=== PATIENT | female | born 1980 | race Caucasian/White ===

== ENCOUNTER 2018-02-24 12:13 | Emergency (ER) | payer OTHER ==
[2018-02-24 13:04] LABS: #Basophils 0.1 thou/uL (0.0-0.2); #Eosinphils 0.1 thou/uL (0.0-0.7); #Lymphocytes 2.7 thou/uL (1.20-3.40); #Monocytes 0.3 thou/uL (0.11-0.59); #Neutrophils 4.6 thou/uL (1.40-6.50); %Basophils 1.3 % (0.0-1.0); %Eosinophils 1.9 % (0.0-10.0); %Lymphocytes 34.4 % (21.0-51.0); %Monocytes 4.2 % (0.0-10.0); %Neutrophils 58.2 % (42.0-75.0); Hemoglobin 16.3 g/dL (12.0-16.0); Mean Corpuscular HGB CONC 33.7 g/dL (32.0-36.0); Mean Corpuscular Hemoglobin 32.4 pg (27.0-31.0); Mean Corpuscular Volume 96.1 fL (78.0-98.0); Mean Platelet Volume 6.8 fL (7.4-10.4); Platelet Count 294 thou/uL (130-400); RBC Distribution Width 11.4 % (11.5-14.5); Red Blood Cell (RBC) Count 5.03 mill/uL (4.20-5.40); White Blood Cell (WBC) Count 7.9 thou/uL (4.8-10.8)
[2018-02-24] MEDS ORDERED: Ondansetron ODT 4 MG TAB ONE (13:23)
[2018-02-24 13:26] LABS: Anion Gap 12 mmol/L (10-20); BUN (Urea Nitrogen) 9 mg/dL (7.0-18.7); Calc. Creatinine Clearance 0 mL/min (70-130); Calcium 9.7 mg/dL (7.8-10.44); Carbon Dioxide 24 mmol/L (22-29); Chloride 105 mmol/L (98-107); Estimated GFR-MDRD 75; Glucose 96 mg/dL (70-105); Potassium 4.1 mmol/L (3.5-5.1); Sodium 137 mmol/L (136-145)
[2018-02-24 13:29] LABS: CKMB 0.4 ng/mL (0-6.6); Troponin I Less than 0.010 ng/mL (< 0.028)
--- NOTE | 2018-02-24 13:55 | RAD ---
PA AND LATERAL CHEST: Date: 02/24/18 INDICATION: Chest pain. COMPARISON: None. IMPRESSION: Lungs are mildly hyperexpanded, but clear. Cholecystectomy clips are seen in the right upper quadrant . Cardiomediastinal silhouette is within normal limits. No acute osseous abnormality is noted. POS: [facility]
[2018-02-24] MEDS ORDERED: Promethazine HCl 25 MG/ML VIAL ONE (14:35)
[2018-02-24] MEDS ORDERED: Ketorolac Tromethamine 30 MG/ML VIAL ONE (15:36)
[2018-02-24] MEDS ORDERED: Pantoprazole 40 MG VIAL ONE (15:36)
--- NOTE | 2018-02-24 16:09 | RAD ---
THREE VIEWS OF THE ABDOMEN: Indication: Vomiting. FINDINGS: Upright and supine images of the abdomen demonstrate no evidence of pneumoperitoneum. Lung bases are clear. Cholecystectomy clips are seen within the right upper quadrant. Bowel gas pattern is nonobstru cted. Small surgical clips seen within the left hemipelvis, likely a displaced clips from the patient 's cholecystectomy procedure. No acute osseous abnormality is evident. IMPRESSION: No acute abnormality. POS: [facility]
== END 2018-02-24 17:00 | disposition home or self-care (01) ==
LOC: ERS 12:13
DX: R10.12 Left upper quadrant pain (principal); R11.2 Nausea with vomiting, unspecified; F17.210 Nicotine dependence, cigarettes, uncomplicated; F41.9 Anxiety disorder, unspecified; Z79.899 Other long term (current) drug therapy
CPT/HCPCS: 36415; 71046; 74019; 80048; 82553; 83690; 84484; 85025; 93005; 96361; 96374; 96375; C9113; J1885; J2550; Q0162

== ENCOUNTER 2018-06-24 22:58 | Observation (INO) | payer OTHER, SELFPAY ==
[2018-06-24 23:49] LABS: #Basophils 0.1 thou/uL (0.0-0.2); #Eosinphils 0.2 thou/uL (0.0-0.7); #Lymphocytes 3.5 thou/uL (1.20-3.40); #Monocytes 0.4 thou/uL (0.11-0.59); #Neutrophils 3.4 thou/uL (1.40-6.50); %Basophils 1.7 % (0.0-1.0); %Eosinophils 2.4 % (0.0-10.0); %Lymphocytes 45.8 % (21.0-51.0); %Monocytes 5.8 % (0.0-10.0); %Neutrophils 44.4 % (42.0-75.0); Hemoglobin 15.6 g/dL (12.0-16.0); Mean Corpuscular HGB CONC 33.1 g/dL (32.0-36.0); Mean Corpuscular Hemoglobin 32.1 pg (27.0-31.0); Mean Platelet Volume 7.5 fL (7.4-10.4); Platelet Count 252 thou/uL (130-400); RBC Distribution Width 11.5 % (11.5-14.5); Red Blood Cell (RBC) Count 4.87 mill/uL (4.20-5.40); White Blood Cell (WBC) Count 7.7 thou/uL (4.8-10.8)
[2018-06-25 00:03] LABS: ALT (SGPT) 11 U/L (8-55); AST (SGOT) 16 U/L (5-34); Albumin 4.2 g/dL (3.5-5.0); Alkaline Phosphatase 66 U/L (40-150); Anion Gap 11 mmol/L (10-20); BUN (Urea Nitrogen) 9 mg/dL (7.0-18.7); Bilirubin, Total 0.4 mg/dL (0.2-1.2); Calc. Creatinine Clearance 0 mL/min (70-130); Calcium 9.1 mg/dL (7.8-10.44); Carbon Dioxide 24 mmol/L (22-29); Chloride 106 mmol/L (98-107); Estimated GFR-MDRD 72; Globulin 2.8 g/dL (2.4-3.5); Glucose 98 mg/dL (70-105); Lipase 9 U/L (8-78); Potassium 3.9 mmol/L (3.5-5.1); Sodium 137 mmol/L (136-145)
[2018-06-25 00:06] LABS: Troponin I Less than 0.010 ng/mL (< 0.028)
--- NOTE | 2018-06-25 00:10 | RAD ---
CHEST ONE VIEW: 06/24/18 INDICATION: Cough, rib pain, nausea. COMPARISON: Prior exam dated 02/24/18. FINDINGS: The lungs are clear. The cardiomediastinal silhouette is within normal limits. No acute osseous abnor mality is evident. IMPRESSION: No acute cardiopulmonary abnormality. POS: [facility]
[2018-06-25] MEDS ORDERED: Ondansetron PF 4 MG/2 ML Vial ONE (00:12)
[2018-06-25] MEDS ORDERED: Ketorolac Tromethamine 30 MG/ML VIAL ONE (00:12)
[2018-06-25] MEDS ORDERED: diphenhydrAMINE 50 MG/ML VIAL ONE (00:37)
[2018-06-25 00:58] LABS: Bilirubin Negative (Negative); Blood, Urine Negative (Negative); Clarity CLEAR (Clear); Glucose, Urine (Dipstick) Negative (Negative); Leukocyte Negative (Negative); Nitrite Negative (Negative); Protein, Urine (Dipstick) Negative (Neg-Trace); Specific Gravity, Urine 1.003 (1.002-1.036); Urobilinogen 0.2 mg/dL (0.2-1.0)
[2018-06-25 00:59] LABS: Pregnancy Test - Urine (BHCG) Negative (Negative); Pregu Control Background? CLEAR/WHITE (CLR/WHITE); Pregu Control Bar Appear? YES (CONTROL BAR); Specific Gravity 1.003 (1.002-1.036)
[2018-06-25] MEDS ORDERED: Ondansetron PF 4 MG/2 ML Vial IVP PRN (01:18)
[2018-06-25] MEDS ORDERED: Guaifenesin DM 100-10/5 ML UDCUP PO PRN (01:18)
[2018-06-25] MEDS ORDERED: Acetaminophen 325 MG TAB PO PRN (01:18)
[2018-06-25] MEDS ORDERED: Nitroglycerin 0.4 MG TAB (25 Tab Bottle) PO PRN (01:18)
[2018-06-25] MEDS ORDERED: Aspirin 325 MG TAB PO SCH ×2 (01:30→08:00)
[2018-06-25] MEDS ORDERED: Ondansetron ODT 4 MG TAB ONE (02:13)
[2018-06-25 03:28] LABS: #Basophils 0.1 thou/uL (0.0-0.2); #Eosinphils 0.2 thou/uL (0.0-0.7); #Lymphocytes 2.6 thou/uL (1.20-3.40); #Monocytes 0.3 thou/uL (0.11-0.59); #Neutrophils 2.8 thou/uL (1.40-6.50); %Basophils 1.5 % (0.0-1.0); %Eosinophils 2.5 % (0.0-10.0); %Lymphocytes 44.1 % (21.0-51.0); %Monocytes 4.2 % (0.0-10.0); %Neutrophils 47.7 % (42.0-75.0); Hemoglobin 12.4 g/dL (12.0-16.0); Mean Corpuscular HGB CONC 33.8 g/dL (32.0-36.0); Mean Corpuscular Hemoglobin 33.1 pg (27.0-31.0); Mean Corpuscular Volume 97.9 fL (78.0-98.0); Mean Platelet Volume 7.3 fL (7.4-10.4); Platelet Count 207 thou/uL (130-400); RBC Distribution Width 11.5 % (11.5-14.5); Red Blood Cell (RBC) Count 3.76 mill/uL (4.20-5.40)
[2018-06-25 03:49] LABS: Troponin I Less than 0.010 ng/mL (< 0.028)
[2018-06-25 03:53] LABS: Anion Gap 10 mmol/L (10-20); BUN (Urea Nitrogen) 7 mg/dL (7.0-18.7); Calc. Creatinine Clearance 0 mL/min (70-130); Calcium 7.3 mg/dL (7.8-10.44); Carbon Dioxide 19 mmol/L (22-29); Cardiac Risk 4.1 (Less than 4.5); Chloride 115 mmol/L (98-107); Cholesterol 160 mg/dl (< 200 Desired); Estimated GFR-MDRD Greater than 90; Glucose 87 mg/dL (70-105); HDL Cholesterol 39 mg/dL (>60 Neg Risk); LDL Cholesterol, Calculated 99 mg/dL; Potassium 3.4 mmol/L (3.5-5.1); Sodium 141 mmol/L (136-145); Triglycerides 111 mg/dL (Less than 150)
[2018-06-25] MEDS ORDERED: Sodium Chloride 0.9% 1,000 ML IV SCH (04:15)
--- NOTE | 2018-06-25 04:42 | HP ---
REASON FOR ADMISSION: Chest pain. HISTORY OF PRESENT ILLNESS: The patient gives history of having mid back pain from 6:00 p.m. yesterd efren. She initially thought this was related to gas. She tried various home remedies. Nothing helped . Patient started to have retrosternal chest pain this morning and was radiating to the left shoulde r. This was 4-5/10 in intensity and was worse with breathing. This was associated with shortness of breath. She has had dry cough, but no fever or expectoration. Patient also felt her left elbow dionne n to the hand was numb. As all of these symptoms started to get worse, patient got concerned, hence came to emergency room. PAST MEDICAL AND SURGICAL HISTORY: History of cervical cancer with prior chemotherapy given in 2006 and subsequent hysterectomy, cholecystectomy, anxiety disorder. CURRENT MEDICATIONS: The patient is on estradiol, transdermal patch, alprazolam p.r.n. for anxiety. ALLERGIES: CECLOR, IODINE. PERSONAL HISTORY: Smokes 5-6 cigarettes a day, does not abuse alcohol or drugs. FAMILY HISTORY: Mother has history of hypertension. Father has had 3 MIs and 2 strokes and is livin g. CODE STATUS: FULL. This was discussed with patient at bedside. REVIEW OF SYSTEMS: The following complete review of systems was negative, unless otherwise mentioned in the HPI or below: Constitutional: Weight loss or gain, ability to conduct usual activities. Sk in: Rash, itching. Eyes: Double vision, pain. ENT/Mouth: Nose bleeding, neck stiffness, pain, te nderness. Cardiovascular: Palpitations, dyspnea on exertion, orthopnea. Respiratory: Shortness of breath, wheezing, cough, hemoptysis, fever or night sweats. Gastrointestinal: Poor appetite, abdom inal pain, heartburn, nausea, vomiting, constipation, or diarrhea. Genitourinary: Urgency, frequenc y, dysuria, nocturia. Musculoskeletal: Pain, swelling. Neurologic/Psychiatric: Anxiety, depressio n. Allergy/Immunologic: Skin rash, bleeding tendency. PHYSICAL EXAMINATION: GENERAL: The patient is a 37-year-old female who is currently not in any acute distress. VITAL SIGNS: Blood pressure 105/74, pulse 80 per minute, respiratory rate 20 per minute, temperature 97.7 degrees Fahrenheit, saturating 99% on room air. NECK: Supple, no elevated JVD. HEENT: Eyes: Extraocular muscles intact. Pupils reacting to light. Oral cavity mucous membranes a re moist. No exudates or congestion. CARDIOVASCULAR: S1, S2 heard. Regular rhythm. RESPIRATORY: Air entry 1+ bilaterally. No rales or rhonchi. ABDOMEN: Soft, bowel sounds heard. No tenderness, rigidity or guarding. EXTREMITIES: No peripheral edema or calf tenderness. VASCULAR SYSTEM: Peripheral pulses 1+ bilateral. No ischemic ulcerations or gangrene. CENTRAL NERVOUS SYSTEM: No gross focal deficits noted. Patient is alert, awake, oriented well. PSYCHIATRIC: The patient's mood is euthymic. No hallucinations or delusions. LABORATORY AND X-RAY FINDINGS: EKG done shows normal sinus rhythm at 76 beats per minute. There is low voltage EKG. Chest x-ray done shows no acute cardiopulmonary abnormalities. White count of 7, H &H 15 and 47, platelet count 252, MCV is 97 with 44% neutrophils. Electrolytes are stable. BUN 9, c reatinine 0.8, glucose 98. Liver enzymes within normal limits. BNP is 21. Cardiac enzymes x1 is ne gative. UA is negative for any infection. CLINICAL IMPRESSION AND PLAN: The patient will be placed under observation on telemetry for pleuriti c chest pain, but patient also has some components of left upper extremity numbness and radiation. S he has some very strong family history of heart disease with her father having DE at an early age as well. In view of this, we will obtain a nuclear stress test as well. Her CT angio chest has been or dered in the ER and will await the results of the same. She has iodine allergy and has been premedic ated for the same. She will be on full dose aspirin, Pepcid 20 mg twice daily for now. 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 In view of this, we will obtain an echo with 2D Doppler to assess her valves.
[2018-06-25 05:01] VITALS: BMI 34.8
--- NOTE | 2018-06-25 07:23 | CT ---
CTA THORAX UTILIZING IV CONTRAST PE PROTOCOL WITH 3D REFORMATTED IMAGING: Date: 06/24/18 INDICATION: History of dyspnea with dry cough and rib pain. TECHNIQUE: Multiple CTA images were obtained of the thorax utilizing PE protocol. Contrast opacification of the arterial structures is slightly limited due to partial infiltration of the IV during the examination. There is good opacification of the central pulmonary arteries. FINDINGS: No definite central pulmonary embolus is evident. Heart and great vessels appear within normal limits . There is mild bibasilar atelectasis. No consolidation, pleural effusion, or pneumothorax is evident . No definite enlarged lymph nodes are noted. Visualized upper abdomen reveals no definite acute abno rmality. There are cholecystectomy clips present. There is scattered degenerative change. IMPRESSION: 1. No central pulmonary embolus. 2. Bibasilar atelectasis. 3. Cholecystectomy. POS: [facility]
[2018-06-25 07:30] LABS: Troponin I Less than 0.010 ng/mL (< 0.028)
[2018-06-25] MEDS ORDERED: Enoxaparin Sodium 40 MG/0.4 ML SYRINGE SC SCH (09:00)
[2018-06-25] MEDS ORDERED: Famotidine 20 MG TAB PO SCH (09:00)
[2018-06-25] MEDS ORDERED: ALPRAZolam 1 MG TAB PO PRN (10:31)
--- NOTE | 2018-06-25 15:29 | PDOC.PN ---
- Subjective Encounter Start Date: 06/25/18 Encounter Start Time: 09:00 -: f/u on chest pain admin, examined this morning -: feeling better but appears anxious, rpts valve d/o when she was 22 - Objective Resuscitation Status: Resuscitation Status FULL:Full Resuscitation Vital Signs & Weight: Vital Signs (12 hours) Temp Pulse Resp BP BP Pulse Ox 06/25/18 11:44 97.7 F 60 18 88/52 L 95 06/25/18 10:55 92/53 L 06/25/18 07:45 98.1 F 66 16 80/44 L 93 L 06/25/18 07:15 59 L 98/54 L 06/25/18 06:20 58 L 84/50 L 06/25/18 03:51 97.6 F 58 L 18 90/60 95 Weight Admit Weight 86.409 kg Weight 86.409 kg I&O: 06/24/18 06/25/18 06/26/18 06:59 06:59 06:59 Intake Total 1120 Output Total 500 Balance 620 Result Diagrams: 06/25/18 03:11 06/25/18 03:11 Phys Exam - Physical Examination HEENT: PERRLA, moist MMs Neck: no nodes, no JVD Respiratory: no wheezing, no rales, clear to auscultation bilateral Cardiovascular: RRR, no significant murmur Gastrointestinal: soft, non-tender Musculoskeletal: no edema, pulses present Neurological: non-focal, normal sensation Lymphatic: no nodes Psychiatric: normal affect, A&O x 3 Skin: no rash, normal turgor, cap refill <2 seconds Dx/Plan (1) Chest pain Code(s): R07.9 - CHEST PAIN, UNSPECIFIED Status: Acute (2) Anxiety Code(s): F41.9 - ANXIETY DISORDER, UNSPECIFIED Status: Chronic (3) Obesity Code(s): E66.9 - OBESITY, UNSPECIFIED Status: Chronic - Plan cont current plan of care Echo ordered -: Stress test ordered but cancelled due to hypotension -: Cardiology consult added today (Dr. Sharpe cx stress) -: Will check labs in am, monitor VS * .
[2018-06-25 16:08] VITALS: TEMP 97.9
--- NOTE | 2018-06-25 16:46 | PDOC.EVN ---
Event Note - Event Note Event Note: clinical management discussed with Katelin Parham NP, concur with management
[2018-06-25 17:28] VITALS: BP 111/68
[2018-06-25] MEDS ORDERED: Ibuprofen 800 MG TAB PO SCH ×2 (17:30→22:00)
--- NOTE | 2018-06-25 17:39 | CON ---
DATE OF CONSULTATION: 06/25/2018 CARDIOLOGY CONSULTATION REASON FOR CONSULTATION: Chest pain. HISTORY OF PRESENT ILLNESS: Mrs. Cornelius is a very pleasant 37-year-old white female who comes to the hospital for chest pain. She was at home, started having a lot of nausea and pain in between her sc apula. She later noticed that the pain would move to her left chest, worse when she would take a makeda p breath, better if she would sit up, worse if she would lie on her back. She has been dealing with bronchitis for the last 2-3 weeks and has been on some rounds of antibiotics as well. Today, she was scheduled to have a stress test because of the chest pain; however, she was hypotensive down in the stress lab at 80s/40s, so this was canceled and Cardiology was consulted for this. PAST MEDICAL HISTORY: 1. Cervical cancer with chemotherapy and subsequent hysterectomy, this was in 2006. 2. Cholecystectomy. 3. Anxiety disorder. OUTPATIENT MEDICATIONS: 1. Estradiol transdermal patch. 2. Alprazolam p.r.n. for anxiety. ALLERGIES: CECLOR and she carries a diagnosis of iodine allergy, however, this is not a true allergy . She has a SHELLFISH allergy and she has never had a reaction to iodine, but all she has received p rior to scanning is Benadryl. She has never had steroids before iodine. SOCIAL HISTORY: Smokes about 6 cigarettes a day. No alcohol or drugs. She is a published book writ er. FAMILY HISTORY: Mother with hypertension, father with 3 MIs and 2 strokes. REVIEW OF SYSTEMS: A 12-point review of systems was done and is all negative unless stated in the hi story of present illness. PHYSICAL EXAMINATION: VITAL SIGNS: Temperature 97.9, pulse 65, respiration rate 18, satting 97% on room air, blood pressur e 125/67, earlier it was 80/44, responded well to fluids. GENERAL: Awake, alert, oriented x3, in no distress. HEENT: Normocephalic, atraumatic. NECK: Supple. LUNGS: Clear. CARDIOVASCULAR: S1, S2. No S3, S4. No murmurs, no rubs. ABDOMEN: Soft. Positive bowel sounds. EXTREMITIES: No edema. SKIN: Warm and dry. LABORATORY WORK: Reviewed. White count of 7.7, hemoglobin of 15.6, hematocrit of 97, platelet count 252,000. Chemistries were unremarkable except for potassium that is mildly low at 3.4, calcium at 7 .3. Troponin is negative x3. BNP was 21. Triglycerides of 111, cholesterol of 160, LDL of 99, HDL of 39. UA was normal. EKG was unremarkable. Echocardiogram was reviewed. It showed EF at 60%-65% with no regional wall motion abnormalities. Th ere was just trace MR and moderate TR with normal right-sided pressures. There was a very small-size d pericardial effusion without tamponade. ASSESSMENT: 1. Pleuritic type chest pain. 2. A small pericardial effusion. 3. Symptoms highly suspicious for pericarditis. PLAN: 1. We will start high dose NSAIDs with ibuprofen 800 three times a day scheduled. We will give her first dose here and keep her overnight to see if she feels any better tomorrow, hopefully, she will a nd will be able to be discharged home. 2. Tricuspid regurgitation: There is moderate TR at this time with normal right-sided pressures. S he states she has a history of fen-phen in the past to try to lose weight and she had been told that she had mitral regurgitation due to this several years back. Unclear as to the extent. However, cur rently moderate with normal right-sided pressures. Thank you for letting us participate in the care of your patient. We will follow.
--- NOTE | 2018-06-26 14:13 | DIS ---
DATE OF ADMISSION: 06/25/2018 DATE OF DISCHARGE: 06/25/2018 PRIMARY CARE PHYSICIAN: Dr. Keke Valdes. CONSULTANTS: Dr. Jose Sharpe. PROCEDURES: Patient had echocardiogram, findings, ejection fraction 60%-65%, no regional wall motion abnormalities, trace mitral regurgitation, moderate tricuspid regurgitation, normal right ventricular pressures, small-sized pericardial effusion without tamponade. Patient also had a chest x-ray, which showed no acute cardiopulmonary abnormality. CTA of the chest was performed that showed no central pulmonary emboli, bibasilar atelectasis. DISCHARGE DIAGNOSES: 1. Pericardial effusion. 2. Obesity. 3. Anxiety disorder. REVIEW OF SYSTEMS: A complete review of systems was negative. On day of discharge, patient reports some mild chest pain that radiates to her back, otherwise, denies all other symptoms. PHYSICAL EXAMINATION: VITAL SIGNS: Temperature 97.6, pulse 59, respirations 18, blood pressure 98/54 , pulse oximetry is 95 on room air. GENERAL: Patient is a 37-year-old female is not in any acute distress, answers questions appropriately. NECK: Supple. No elevated JVD. HEENT: Eyes, extraocular muscles are intact. Pupils are reacting to light. Mucous membranes are moist. CARDIOVASCULAR: S1, S2, regular rhythm. RESPIRATORY: Clear breath sounds auscultated bilaterally. No rales or rhonchi. ABDOMEN: Soft, no tenderness. Bowel sounds are heard. EXTREMITIES: Strength +5 in all 4 extremities. No peripheral edema. No calf tenderness. NEUROLOGIC: Patient is alert and oriented x3. No gross focal deficits are noted. PSYCHIATRIC: Patient is appropriate and normal affect. HOSPITAL COURSE: Patient gives a history of having some mid back pain that started 6 p.m. on the day prior to admission. She initially thought it was gas. She had tried several home remedies without success. Patient on day of admission starting having some retrosternal chest pain that was radiating to her left shoulder and was worse with inspiration. She has some associated shortness of breath with this, had a dry cough. Denied any fever or phlegm. Patient was initially scheduled for a stress test, but was entered the blood pressure threshold, so it was canceled. Patient did have echocardiogram findings as above. Dr. Sharpe did come to the patient, can read her echocardiogram diagnosed her with a small pericardial effusion. We discharged her home with NSAIDs and close follow up with her PCP. Discharge plan was discussed with Dr. Rice, who agreed. Home medications were continued. She is on an estradiol transdermal patch, Xanax 1 mg t.i.d. as needed for anxiety, and she was given a prescription for ibuprofen 800 mg p.o. t.i.d., and Protonix 40 mg p.o. daily. ALLERGIES: Includes CECLOR, GLUTEN, IODINE, and SHELLFISH. CONDITION: Patient is stable. DISCHARGE INSTRUCTIONS: Patient will be discharged to home. REFERRAL: Patient will need to follow up with Dr. Valdes within the next week. JOHANA
== END 2018-06-25 18:28 | disposition home or self-care (01) ==
LOC: ERS 22:58 → 2SW 06-25 01:50
PROVIDERS: ADMIT Internal Medicine; ATTEND Internal Medicine
DX: I31.3 Pericardial effusion (noninflammatory) (principal); R07.2 Precordial pain; F41.9 Anxiety disorder, unspecified; F17.210 Nicotine dependence, cigarettes, uncomplicated; I07.1 Rheumatic tricuspid insufficiency; E66.9 Obesity, unspecified; Z68.34 Body mass index [BMI] 34.0-34.9, adult; Z85.41 Personal history of malignant neoplasm of cervix uteri; Z92.21 Personal history of antineoplastic chemotherapy; Z79.899 Other long term (current) drug therapy; Z88.1 Allergy status to other antibiotic agents; Z91.013 Allergy to seafood; Z91.041 Radiographic dye allergy status; Z90.710 Acquired absence of both cervix and uterus
CPT/HCPCS: 36415; 71045; 71275; 80048; 80053; 80061; 81003; 81025; 83690; 83880; 84484; 85025; 93005; 93306; 96361; 96372; 96374; 96375; G0378; J1200; J1650; J1885; J2405; Q0162

== ENCOUNTER 2018-10-08 22:23 | Observation (INO) | payer BC, SELFPAY ==
[2018-10-08 23:09] LABS: #Basophils 0.1 thou/uL (0.0-0.2); #Eosinphils 0.2 thou/uL (0.0-0.7); #Lymphocytes 3.3 thou/uL (1.20-3.40); #Monocytes 0.4 thou/uL (0.11-0.59); #Neutrophils 2.9 thou/uL (1.40-6.50); %Basophils 1.2 % (0.0-1.0); %Eosinophils 2.7 % (0.0-10.0); %Monocytes 5.1 % (0.0-10.0); %Neutrophils 43.1 % (42.0-75.0); Hemoglobin 14.4 g/dL (12.0-16.0); Mean Corpuscular HGB CONC 32.2 g/dL (32.0-36.0); Mean Corpuscular Hemoglobin 31.5 pg (27.0-31.0); Mean Platelet Volume 6.7 fL (7.4-10.4); Platelet Count 276 thou/uL (130-400); RBC Distribution Width 11.4 % (11.5-14.5); Red Blood Cell (RBC) Count 4.55 mill/uL (4.20-5.40); White Blood Cell (WBC) Count 6.8 thou/uL (4.8-10.8)
[2018-10-08] MEDS ORDERED: Ondansetron PF 4 MG/2 ML Vial ONE (23:22)
[2018-10-08 23:42] LABS: ALT (SGPT) 19 U/L (8-55); AST (SGOT) 17 U/L (5-34); Alkaline Phosphatase 65 U/L (40-150); Anion Gap 12 mmol/L (10-20); BUN (Urea Nitrogen) 9 mg/dL (7.0-18.7); Bilirubin, Total 0.3 mg/dL (0.2-1.2); Calc. Creatinine Clearance 0 mL/min (70-130); Carbon Dioxide 25 mmol/L (22-29); Chloride 106 mmol/L (98-107); Estimated GFR-MDRD 75; Globulin 2.6 g/dL (2.4-3.5); Glucose 92 mg/dL (70-105); Lipase 10 U/L (8-78); Potassium 3.8 mmol/L (3.5-5.1); Protein, Total 6.6 g/dL (6.0-8.3); Sodium 139 mmol/L (136-145)
[2018-10-09] MEDS ORDERED: Metoclopramide HCl 10 MG/2 ML VIAL ONE (00:03)
[2018-10-09] MEDS ORDERED: Pantoprazole 40 MG VIAL ONE (00:03)
[2018-10-09] MEDS ORDERED: Morphine 4 MG/ML VIAL ONE (00:03)
[2018-10-09 00:11] LABS: Bilirubin Negative (Negative); Blood, Urine Negative (Negative); Clarity CLEAR (Clear); Glucose, Urine (Dipstick) Negative (Negative); Leukocyte Negative (Negative); Nitrite Negative (Negative); Protein, Urine (Dipstick) Negative (Neg-Trace); Specific Gravity, Urine 1.006 (1.002-1.036); Urobilinogen 0.2 mg/dL (0.2-1.0)
[2018-10-09 00:12] LABS: Pregnancy Test - Urine (BHCG) Negative (Negative); Pregu Control Background? CLEAR/WHITE (CLR/WHITE); Pregu Control Bar Appear? YES (CONTROL BAR); Specific Gravity 1.006 (1.002-1.036)
[2018-10-09] MEDS ORDERED: ESTRADIOL 0.025 MG TD SCH (02:00)
[2018-10-09] MEDS: Sodium Chloride 0.9% 1,000 ML IV SCH ×2 (02:39→14:35)
[2018-10-09] MEDS: Ondansetron PF 4 MG/2 ML Vial IVP PRN ×3 (02:41→20:18)
[2018-10-09] MEDS: Metoclopramide HCl 10 MG/2 ML VIAL IVP PRN ×2 (02:43→16:25)
[2018-10-09] MEDS: Morphine 4 MG/ML VIAL SLOW IVP PRN ×5 (02:45→21:53)
[2018-10-09] MEDS: Lorazepam 2 MG/ML VIAL SLOW IVP PRN ×3 (02:47→21:59)
[2018-10-09] MEDS: Nicotine 14 MG PATCH TD SCH (02:49)
--- NOTE | 2018-10-09 03:29 | HP ---
PRIMARY CARE PHYSICIAN: Dr. Wiggins. CHIEF COMPLAINT: Abdominal pain, nausea, vomiting, and hematemesis. HISTORY OF PRESENT ILLNESS: Mrs. Adryan Lutz is a pleasant 38-year-old female with past medical history of irritable bowel syndrome, previous history of cervical cancer, who has presented to [facility] with an increased epigastric pain and nausea and vomiting over the last week. She states since yesterday she has noticed "coffee-grounds emesis" along with bright red blood and emesis. She states during several episodes of vomiting, she had felt "ripping sensation" in her chest and that is when she noticed the bright red blood. She states earlier today, she has only seen dark coffee-grounds emesis. She has a history of NSAID use and also under a lot of stress lately. She had denied any fever or chills. She had denied any shortness of breath or any urinary symptoms. She denied any weakness, tingling or swelling. She states that she was recently admitted for left-sided chest pain back in June, she was treated for pericarditis and was later discharged home with outpatient followup. She states that the pain that she is having today is quite different. She states ever since that she was a child, she has had "stomach problems." She states that she had an EGD and colonoscopy in 2011, she was also told that she had IBS and that she may have these symptoms on and off depending on what she eats. During her initial workup, hemoglobin stable at 14.4. Vital signs are also stable with a blood pressure of 108/68. She was given a dose of Reglan and Zofran for her nausea in the emergency department. She was also given IV push of 40 mg Protonix and 4 mg IV morphine. She states that her pain improved slightly. She was also given 1 L of normal saline. EKG shows some sinus arrhythmia with a rate of 69. T-waves normal. Abdominal plain film showed normal small bowel gas, no air-fluid levels or no free air. Plan is to admit the patient under observation, GI Services will be consulted for possible EGD in the morning. REVIEW OF SYSTEMS: All other systems are reviewed and found to be negative unless mentioned in the HPI. PAST MEDICAL HISTORY: IBS, cervical cancer. PAST SURGICAL HISTORY: Cholecystectomy, hysterectomy, section x1, and surgery for endometriosis. PSYCHIATRIC HISTORY: Anxiety. SOCIAL HISTORY: The patient denies alcohol or illicit drug use; however, she does report half-pack cigarettes per day. KNOWN ALLERGIES: Ceclor, gluten, iodine, and shellfish. CURRENT HOME MEDICATIONS: 1. Estradiol 0.025 mg/hour transdermal patch. 2. Alprazolam 0.5 mg oral as needed for anxiety. PHYSICAL EXAMINATION: VITAL SIGNS: Blood pressure 108/68, pulse 63, respirations 16, temperature 97.8 degrees Fahrenheit, and O2 saturations 99% on room air. GENERAL: The patient is awake, alert, oriented x3, mild acute distress noted due to pain. HEENT: Atraumatic, normocephalic. Pupils are round and reactive to light. Extraocular muscles intact. Moist mucous membranes noted. NECK: Soft, supple, and nontender. CARDIOVASCULAR: Positive S1 and S2. Regular rate and rhythm. No murmur auscultated. RESPIRATORY: Clear to auscultation bilaterally. No wheezes, rales, or rhonchi. ABDOMEN: Soft. Moderate tenderness to palpation in left upper quadrant region. Nondistended. Bowel sounds present. MUSCULOSKELETAL: Strength 5+ bilaterally in upper and lower extremities. Moves all extremities equal. No edema noted. NEUROLOGIC: Cranial nerves 2 through 12 grossly intact. No focal deficits noted. Gait not assessed. Speech normal and intact. SKIN: Warm, dry, and intact. No rashes. No lesions. PSYCHIATRIC: Good mood and affect. LABORATORY DATA: WBC 6.8, RBC 4.55, hemoglobin 14.4, and platelet 276. Sodium 139, potassium 3.8, anion gap 12, creatinine 0.84, estimated GFR 75. AST 17, ALT 19, alkaline phosphatase 65, and lipase 10. Urinalysis unremarkable. Urine test negative. Abdominal x-ray unremarkable. ASSESSMENT AND PLAN: 1. Possible gastrointestinal bleed, GI Services consulted for further evaluation with possible esophagogastroduodenoscopy in the morning. The patient will be made n.p.o., IV Protonix 40 mg twice daily will be started. Strongly recommended cessation of NSAID use along with smoking cessation. Check CBC in the a.m. and monitor hemoglobin and hematocrit closely and transfuse as needed. 2. Nausea and vomiting. Continue on IV Zofran as needed. We will also add IV Reglan as needed as well. 3. History of hysterectomy. Continue home regimen of estradiol. 4. History of anxiety. We will add IV Ativan 0.5 mg as needed. 5. Deep venous thrombosis prophylaxis with sequential compression devices at this time. As the patient with possible gastrointestinal bleed, further anticoagulation not recommended at this time. 6. Gastrointestinal prophylaxis with above. 7. Code status, full code. 8. Disposition pending further workup and clinical findings. Job ID: [id number]
[2018-10-09 05:18] LABS: #Basophils 0.1 thou/uL (0.0-0.2); #Eosinphils 0.2 thou/uL (0.0-0.7); #Lymphocytes 3.1 thou/uL (1.20-3.40); #Monocytes 0.4 thou/uL (0.11-0.59); #Neutrophils 4.3 thou/uL (1.40-6.50); %Basophils 0.9 % (0.0-1.0); %Lymphocytes 38.2 % (21.0-51.0); %Monocytes 4.9 % (0.0-10.0); %Neutrophils 54.1 % (42.0-75.0); Hemoglobin 13.9 g/dL (12.0-16.0); Mean Corpuscular HGB CONC 32.6 g/dL (32.0-36.0); Mean Corpuscular Hemoglobin 32.3 pg (27.0-31.0); Mean Corpuscular Volume 98.9 fL (78.0-98.0); Platelet Count 255 thou/uL (130-400); RBC Distribution Width 11.4 % (11.5-14.5); Red Blood Cell (RBC) Count 4.31 mill/uL (4.20-5.40)
[2018-10-09 05:44] LABS: Anion Gap 11 mmol/L (10-20); BUN (Urea Nitrogen) 7 mg/dL (7.0-18.7); Calc. Creatinine Clearance 135 mL/min (70-130); Calcium 8.3 mg/dL (7.8-10.44); Carbon Dioxide 22 mmol/L (22-29); Chloride 110 mmol/L (98-107); Estimated GFR-MDRD 87; Glucose 80 mg/dL (70-105); Potassium 4.2 mmol/L (3.5-5.1); Sodium 139 mmol/L (136-145)
[2018-10-09] MEDS: Pantoprazole 40 MG VIAL IVP SCH ×2 (07:46→23:06)
--- NOTE | 2018-10-09 08:39 | RAD ---
CHEST 1 VIEW ABDOMEN 2 VIEWS: HISTORY: Chest and abdomen pain. Nausea and vomiting. FINDINGS: Cardiac silhouette is unremarkable. Shallow inspiration accentuates pulmonary markings. No lobar co nsolidation or evidence of free subdiaphragmatic gas. Gas and stool over the colon and rectum. Metallic clips over the gallbladder fossa and left lower qu adrant. No differential air fluid levels or evidence of free intraperitoneal gas. IMPRESSION: Status post cholecystectomy. Nonspecific bowel gas pattern. POS: [facility]
[2018-10-09] MEDS: Sodium Chloride 0.9% (PF) 10 ML VIAL IV SCH ×2 (09:20→23:06)
--- NOTE | 2018-10-09 13:09 | PDOC.PN ---
- Subjective Encounter Start Date: 10/09/18 Encounter Start Time: 13:03 Subjective: Patient with abdominal pain, increased after going outside. States she went -: to get some air by wheelchair. Denies smoking, has patch on. Smoking has -: been causing increased nausea. No further vomiting but reports nausea. States she had vomited black tarry appearing substance at home. No further episodes since admission. States she has not moved her bowels in 3 days. Prior to that was experiencing loose stools. Complains of pain mainly in the epigastric region that radiates across the tops of her abdomen. At times radiating to her back. She states she has been unable to tolerate any oral intake for the last 5 days due to subsequent vomiting. Also reports suprapubic pain with urination, but denies any burning sensation or hematuria. Reports darkening of her urine. She remains NPO but has been asking for Coffee this morning. - Objective Resuscitation Status - Order Detail: 10/09/18 02:02 Resuscitation Status Routine Co-Sign Provider: Resuscitation Status: FULL: Full Resuscitation Vital Signs & Weight: Vital Signs (12 hours) Temp Pulse Resp BP Pulse Ox 10/09/18 11:10 98.2 F 69 16 110/62 95 10/09/18 07:44 97.9 F 72 16 93/61 94 L 10/09/18 01:57 97.8 F 63 16 108/68 99 Weight Weight 185 lb 1.6 oz Result Diagrams: 10/09/18 04:36 10/09/18 04:35 Phys Exam - Physical Examination Constitutional: NAD HEENT: PERRLA, moist MMs, sclera anicteric Neck: no nodes, supple, full ROM Respiratory: no wheezing, no rales difficult to assess, patient not wanting to take deep breaths due to diffuse pain with deep inspiration. Cardiovascular: RRR Gastrointestinal: soft, no distention reports diffuse tenderndess, increased in left abdomen as well as epigastric region. Left CVA tenderness. Musculoskeletal: no edema, pulses present Neurological: normal sensation, moves all 4 limbs Psychiatric: normal affect, A&O x 3 Skin: no rash Dx/Plan (1) Epigastric pain Code(s): R10.13 - EPIGASTRIC PAIN Status: Acute (2) Anxiety Code(s): F41.9 - ANXIETY DISORDER, UNSPECIFIED Status: Chronic (3) Obesity Code(s): E66.9 - OBESITY, UNSPECIFIED Status: Chronic - Plan cont current plan of care Abdo series negative. No supdiaphragmatic free air to indicate perforation. -: Pain likely due to excessive vomiting. Possible viral gastroenteritis -: as she experienced N/V/D. Now with constipation. -: LFTs and lipase unremarkable. Afebrile. WCC normal. -: She did complain of left angle tenderness, renal function and UA normal. Would benefit from further investigation with CT A/P to assess for GI abnormality and rule out renal calculi. GI consultation ordered and awaiting review by Dr. Marquez, perhaps will wait for GI input re: investigations. Will discuss further with Dr. Carvalho. Continue anti-emetics.
[2018-10-09] MEDS: predniSONE 50 MG TAB PO SCH (21:57)
[2018-10-09 22:28] LABS: Amphetamine Not Detected (NotDetected); Barbiturates Screen Not Detected (NotDetected); Benzodiazepine Screen Detected (NotDetected); Cocaine Metabolite Screen Not Detected (NotDetected); Medtox Control Line Valid? VALID (VALID); Medtox Reader # READER 1; Methadone Not Detected (NotDetected); Methamphetamine Not Detected (NotDetected); Opiate Screen Detected (NotDetected); Oxycodone Screen Not Detected (NotDetected); Phencyclidine (PCP) Not Detected (NotDetected); THC/Cannabinoid Screen Not Detected (NotDetected); Tricyclic Screen Not Detected (NotDetected)
[2018-10-10] MEDS: Sodium Chloride 0.9% 1,000 ML IV SCH ×3 (00:39→22:02)
--- NOTE | 2018-10-10 01:35 | CON ---
DATE OF CONSULTATION: 10/09/2018 REASON FOR CONSULTATION: Nausea, vomiting, abdominal pain, and hematemesis. CONSULTING PHYSICIAN: Mr. Troy Zavala. HISTORY OF PRESENT ILLNESS: The patient is a 38-year-old female with a past medical history of irritable bowel syndrome, cervical cancer, pericarditis, fibromyalgia, anxiety, and prior episode of pancreatitis, presenting with increased abdominal pain, nausea, vomiting, and hematemesis. She states that she has been having intermittent episodes of midepigastric abdominal pain, nausea, and vomiting that has been present for years, but worsened over the last 6 days. This was characterized as increased nausea and vomiting over the last 6 days, having approximately 3 to 4 episodes of vomiting per day and usually associated with meal intake. She does endorse increased nausea associated with this vomiting and had been having increased nausea for the last 6 months, but had not any vomiting until recently. Over the last 3 days, she also endorses increased midepigastric abdominal pain characterized as a burning/ripping type sensation, it is constant with waxing/waning severity and will reach the severity of approximately 6/10. The pain and the vomiting are associated with meal intake. They will occur within seconds/minutes of primarily intake of solid food though will occur with some liquids including carbonated beverages. This was also associated with increased left-sided chest pain that is "different from her other pain" with the increased nausea and vomiting over the last 6 days, she vomited primarily bilious type fluid, but over the last 24 hours exhibited increased coffee-grounds emesis that her described as "tar like." Other associated symptoms include odynophagia without dysphagia. Otherwise, she denies fever, chills, melena, hematochezia, constipation, weight loss. REVIEW OF SYSTEMS: A 10-category review of systems was obtained with all responses negative except for the pertinent positives as listed in the HPI. PAST MEDICAL HISTORY: As per HPI. PAST SURGICAL HISTORY: 1. Cholecystectomy. 2. Hysterectomy. 3. section x1. 4. Laparoscopic surgery for endometriosis. FAMILY HISTORY: Denies any GI malignancies. SOCIAL HISTORY: Denies any alcohol or illicit drug use, but smokes approximately one half pack per day. OUTPATIENT MEDICATIONS: Reviewed. ALLERGIES: 1. CECLOR. 2. GLUTEN. 3. IODINE. 4. SHELLFISH. PHYSICAL EXAMINATION: VITAL SIGNS: Temperature 97.8, pulse is 82, blood pressure 129/79, respiratory rate 12, saturating 94% on room air. GENERAL: The patient was lying in bed, in no acute distress. Alert and oriented x4. NECK: Supple. No JVD or scleral icterus noted. HEENT: Normocephalic, atraumatic. CARDIOVASCULAR: Regular rate and rhythm with no discernible murmurs, gallops, or rubs. RESPIRATORY: Clear to auscultation bilaterally with no discernible wheezes or rales. ABDOMEN: Normoactive bowel sounds. Soft, nondistended. Tenderness to both light and deep palpation in the midepigastric right upper quadrant and periumbilical regions. However, she did have significant tenderness to palpation in all the remaining abdominal quadrants. EXTREMITIES: No cyanosis, clubbing, or edema. LABORATORY DATA: CBC with a white blood cell count of 8, hemoglobin 13.9, hematocrit 42.6, platelets 255. Chemistry with a sodium of 139, potassium 4.2, chloride 110, CO2 of 22, BUN 7, creatinine 0.74, glucose 80, AST 17, ALT 19, alkaline phosphatase 65, total bilirubin 0.3, lipase 10. IMAGING DATA: An acute abdomen series was obtained on October 08, 2018, which showed that the patient was status post cholecystectomy, but showed a nonspecific bowel gas pattern. ASSESSMENT AND PLAN: The patient is a 38-year-old female with past medical history of irritable bowel syndrome, cervical cancer, pericarditis, fibromyalgia, anxiety, and pancreatitis, presenting with increased abdominal pain, nausea, vomiting, and hematemesis. Midepigastric abdominal pain. The patient is presenting with a history of intermittent midepigastric abdominal pain that seems to have been present for at least last year and half, been previously evaluated by the GI service. Her pain is characterized as a constant burning/ripping type sensation with radiation to the entire abdomen and is exhibiting exquisite tenderness to both light and deep palpation. Upon chart review of her prior hospitalization, she did state that she had a prior history of pancreatitis, which could lend itself towards her current clinical situation manifesting as an acute-on- chronic pancreatitis type picture despite a normal lipase level; however other GI etiology have not been ruled out at this time and differential could include esophagitis, gastritis, peptic ulcer disease, H. pylori infection, median arcuate ligament syndrome, gastroesophageal reflux disease and/or gastrointestinal neoplasm (much less likely). RECOMMENDATIONS: 1. We would continue PPI daily to be administered 30 to 45 minutes before meal intake given increased possibility of acid reflux. 2. We would obtain a CT of the abdomen and pelvis to evaluate for possible intraabdominal pathology including changes consistent with chronic pancreatitis. 3. We would obtain a drug screen for possible marijuana use and possible cannabinoid hyperemesis syndrome. 4. We will obtain tissue transglutaminase during this admission for evaluation of possible gluten allergy, although this diagnosis is highly unlikely. 5. Please make patient n.p.o. at midnight in preparation for an esophagogastroduodenoscopy tomorrow. 6. We will continue to follow. 7. Please call with any questions. Job ID: [id number]
[2018-10-10] MEDS: predniSONE 50 MG TAB PO SCH ×2 (03:03→09:02)
[2018-10-10] MEDS: Morphine 4 MG/ML VIAL SLOW IVP PRN ×5 (05:03→22:04)
[2018-10-10] MEDS: Ondansetron PF 4 MG/2 ML Vial IVP PRN ×3 (05:06→18:02)
[2018-10-10] MEDS: Nicotine 14 MG PATCH TD SCH (05:08)
[2018-10-10 05:24] LABS: #Lymphocytes 0.7 thou/uL (1.20-3.40); #Neutrophils 2.8 thou/uL (1.40-6.50); %Basophils 0.4 % (0.0-1.0); %Eosinophils 0.1 % (0.0-10.0); %Lymphocytes 19.3 % (21.0-51.0); %Monocytes 0.7 % (0.0-10.0); %Neutrophils 79.4 % (42.0-75.0); Hemoglobin 13.7 g/dL (12.0-16.0); Mean Corpuscular HGB CONC 33.3 g/dL (32.0-36.0); Mean Platelet Volume 7.1 fL (7.4-10.4); Platelet Count 253 thou/uL (130-400); RBC Distribution Width 11.3 % (11.5-14.5); Red Blood Cell (RBC) Count 4.14 mill/uL (4.20-5.40); White Blood Cell (WBC) Count 3.6 thou/uL (4.8-10.8)
[2018-10-10 05:51] LABS: ALT (SGPT) 325 U/L (8-55); AST (SGOT) 213 U/L (5-34); Albumin 3.9 g/dL (3.5-5.0); Alkaline Phosphatase 106 U/L (40-150); Anion Gap 14 mmol/L (10-20); BUN (Urea Nitrogen) 7 mg/dL (7.0-18.7); Bilirubin, Total 0.4 mg/dL (0.2-1.2); Calc. Creatinine Clearance 125 mL/min (70-130); Calcium 8.8 mg/dL (7.8-10.44); Carbon Dioxide 22 mmol/L (22-29); Chloride 109 mmol/L (98-107); Estimated GFR-MDRD 80; Globulin 2.2 g/dL (2.4-3.5); Glucose 144 mg/dL (70-105); Potassium 4.6 mmol/L (3.5-5.1); Protein, Total 6.1 g/dL (6.0-8.3); Sodium 140 mmol/L (136-145)
[2018-10-10] MEDS ORDERED: diphenhydrAMINE 50 MG CAP PO SCH (08:00)
[2018-10-10] MEDS: Pantoprazole 40 MG VIAL IVP SCH ×2 (09:02→20:14)
[2018-10-10] MEDS: Lorazepam 2 MG/ML VIAL SLOW IVP PRN ×3 (09:09→22:03)
[2018-10-10] MEDS: Sodium Chloride 0.9% (PF) 10 ML VIAL IV SCH ×2 (09:59→22:03)
--- NOTE | 2018-10-10 11:12 | CT ---
CT ABDOMEN WITH CONTRAST CT PELVIS WITH CONTRAST: HISTORY: Nausea. Vomiting. Pancreatitis. Epigastric pain. COMPARISON: None. TECHNIQUE: Abdomen and pelvic CT are performed with IV and oral contrast. Coronal reformatted images were submi tted. FINDINGS: ABDOMEN CT: Lung bases are clear. Heart size is normal. Visualized aorta has a normal caliber. Gallbladder is surgically absent. Portal vein is patent. Liver, spleen, pancreas, and adrenal glands have appropriate enhancement. No gastrohepatic, retrocrural, or periportal lymphadenopathy. Symmetric enhancement of the kidneys. Bilaterally, no obstructive uropathy. No evidence of bowel obstruction. Normal caliber appendix. The colon is unremarkable. There is no inflammation at the level of the pancreas. CT PELVIS: Uterus is surgically absent. No pelvic mass, lymphadenopathy, free air, or free fluid. Unremarkable urinary bladder. No lytic or blastic lesion in the osseous structures. Bilateral pars defects at L5. There is a smal l amount of free fluid in the pelvis, nonspecific. IMPRESSION: No CT evidence of pancreatitis. POS: APOLINAR
[2018-10-10 13:11] LABS: #Lymphocytes 0.6 thou/uL (1.20-3.40); #Monocytes 0.1 thou/uL (0.11-0.59); #Neutrophils 5.4 thou/uL (1.40-6.50); %Basophils 0.3 % (0.0-1.0); %Eosinophils 0.2 % (0.0-10.0); %Lymphocytes 10.4 % (21.0-51.0); %Monocytes 0.9 % (0.0-10.0); %Neutrophils 88.1 % (42.0-75.0); Hemoglobin 13.7 g/dL (12.0-16.0); Mean Corpuscular HGB CONC 32.6 g/dL (32.0-36.0); Mean Corpuscular Hemoglobin 32.1 pg (27.0-31.0); Mean Corpuscular Volume 98.3 fL (78.0-98.0); Mean Platelet Volume 7.1 fL (7.4-10.4); Platelet Count 278 thou/uL (130-400); RBC Distribution Width 11.2 % (11.5-14.5); Red Blood Cell (RBC) Count 4.28 mill/uL (4.20-5.40); White Blood Cell (WBC) Count 6.1 thou/uL (4.8-10.8)
[2018-10-10 13:30] LABS: ALT (SGPT) 267 U/L (8-55); AST (SGOT) 100 U/L (5-34); Albumin 4.1 g/dL (3.5-5.0); Alkaline Phosphatase 103 U/L (40-150); Anion Gap 10 mmol/L (10-20); BUN (Urea Nitrogen) 6 mg/dL (7.0-18.7); Bilirubin, Total 0.4 mg/dL (0.2-1.2); Calc. Creatinine Clearance 127 mL/min (70-130); Calcium 9.2 mg/dL (7.8-10.44); Carbon Dioxide 25 mmol/L (22-29); Chloride 110 mmol/L (98-107); Estimated GFR-MDRD 81; Globulin 2.3 g/dL (2.4-3.5); Glucose 134 mg/dL (70-105); Protein, Total 6.4 g/dL (6.0-8.3); Sodium 141 mmol/L (136-145)
--- NOTE | 2018-10-10 15:34 | PDOC.PN ---
- Subjective Encounter Start Date: 10/10/18 Encounter Start Time: 13:32 Subjective: Patient states she has had no change since yesterday. -: Continues to feel generally unwell with abdo discomfort. -: Reports nausea but no vomiting. Remains afebrile. Denies any chest pain, palpitations or sob. No headaches or dizziness. No urinary symptoms. Continues with constipation. - Objective Resuscitation Status - Order Detail: 10/09/18 02:02 Resuscitation Status Routine Co-Sign Provider: Resuscitation Status: FULL: Full Resuscitation Vital Signs & Weight: Vital Signs (12 hours) Temp Pulse Resp BP Pulse Ox 10/10/18 11:46 98.4 F 89 20 104/65 93 L 10/10/18 07:58 98.6 F 86 16 102/63 95 Weight Admit Weight 185 lb 1.6 oz Weight 185 lb 1.6 oz I&O: 10/09/18 10/10/18 10/11/18 06:59 06:59 06:59 Intake Total 1804 Output Total 0 Balance -246 Result Diagrams: 10/10/18 13:03 10/10/18 13:03 Phys Exam - Physical Examination Constitutional: NAD resting comfortably in bed. HEENT: PERRLA, moist MMs Neck: no nodes, no JVD, supple, full ROM Respiratory: clear to auscultation bilateral Cardiovascular: RRR Gastrointestinal: soft, no distention discomfort to palpation, no guarding/rigidity Musculoskeletal: no edema, pulses present Neurological: normal sensation, moves all 4 limbs Lymphatic: no nodes Psychiatric: normal affect, A&O x 3 Dx/Plan (1) Epigastric pain Code(s): R10.13 - EPIGASTRIC PAIN Status: Acute (2) Anxiety Code(s): F41.9 - ANXIETY DISORDER, UNSPECIFIED Status: Chronic (3) Obesity Code(s): E66.9 - OBESITY, UNSPECIFIED Status: Chronic - Plan cont current plan of care Status CT showing no evidence of pancreatitis. -: ALT/AST significantly raised today. Rechecked this afternoon and improving. -: Remains afebrile. Lipase normal. -: EGD for tomorrow. Dr. Marquez following. -: NPO at midnight. * .
[2018-10-11] MEDS ORDERED: diphenhydrAMINE 50 MG CAP PO PRN (00:29)
[2018-10-11] MEDS: Morphine 4 MG/ML VIAL SLOW IVP PRN ×4 (02:21→21:30)
[2018-10-11] MEDS: Nicotine 14 MG PATCH TD SCH (05:10)
[2018-10-11 05:30] LABS: ALT (SGPT) 160 U/L (8-55); AST (SGOT) 40 U/L (5-34); Albumin 3.3 g/dL (3.5-5.0); Alkaline Phosphatase 76 U/L (40-150); Anion Gap 10 mmol/L (10-20); BUN (Urea Nitrogen) 6 mg/dL (7.0-18.7); Bilirubin, Total 0.3 mg/dL (0.2-1.2); Calc. Creatinine Clearance 130 mL/min (70-130); Calcium 8.4 mg/dL (7.8-10.44); Carbon Dioxide 23 mmol/L (22-29); Chloride 111 mmol/L (98-107); Estimated GFR-MDRD 82; Globulin 2.1 g/dL (2.4-3.5); Glucose 93 mg/dL (70-105); Potassium 3.7 mmol/L (3.5-5.1); Protein, Total 5.4 g/dL (6.0-8.3); Sodium 140 mmol/L (136-145)
[2018-10-11] MEDS: Pantoprazole 40 MG VIAL IVP SCH ×2 (08:50→21:30)
[2018-10-11] MEDS: Sodium Chloride 0.9% 1,000 ML IV SCH ×2 (08:50→14:59)
[2018-10-11] MEDS: Lorazepam 2 MG/ML VIAL SLOW IVP PRN ×3 (08:51→21:29)
[2018-10-11] MEDS: Sodium Chloride 0.9% (PF) 10 ML VIAL IV SCH ×2 (08:52→21:31)
[2018-10-11] MEDS: Ondansetron PF 4 MG/2 ML Vial IVP PRN ×3 (08:53→21:36)
--- NOTE | 2018-10-11 09:51 | OP ---
DATE OF PROCEDURE: 10/11/2018 INDICATION FOR PROCEDURE: Midepigastric abdominal pain, nausea, and vomiting. PROCEDURE PERFORMED: Esophagogastroduodenoscopy with biopsy. DESCRIPTION OF PROCEDURE: After the risks and benefits of the procedure were explained to the patient including risks of bleeding, infection, perforation, reactions to anesthesia, aspiration, and/or pain, informed consent was obtained. The patient was then taken to the endoscopy suite, where deep sedation was administered via propofol and anesthesia support. Once adequate sedation was achieved, the standard gastroscope was introduced into the mouth with intubation of the esophagus, stomach, and proximal small intestine with the findings listed below. The patient tolerated the procedure well with no immediate perioperative complications. Upon completion of the procedure, all equipment was removed from the patient and she was transferred to PACU in satisfactory condition. FINDINGS: Esophagus: Normal-appearing mucosa was seen in the proximal, mid, and distal esophagus; however, [id number] resistance was seen with the passage of the scope in the distal esophagus with a clasped knife action at the gastroesophageal junction. There was no evidence of erosions, ulcerations, mass, lesions, or active/recent bleeding. Stomach: Mild mucosal erythema was seen throughout the entire stomach including the cardia, fundus, body, greater curvature, antrum, and incisura. There were no associated erosions, ulcerations, mass, lesions, or active/recent bleeding. Random biopsies were taken from the antrum, incisura, and body for evaluation of the H. pylori status. Duodenum: Mild mucosal erythema was seen within the duodenal bulb, but there were no other associated pathology. Otherwise, the second portion of the duodenum was normal. There was no evidence of erosions, ulcerations, mass, lesions, or active/recent bleeding seen in this region of the GI tract. IMPRESSION: 1. Mild diffuse gastritis, status post random gastric biopsies. 2. Mild duodenitis with unknown etiology. 3. Mild resistance in the distal esophagus concerning for possible achalasia. RECOMMENDATIONS: 1. We will continue the patient on PPI b.i.d. until seen in the GI clinic. 2. We will continue aggressive antiemetic support while inpatient. 3. We will follow up on the biopsy results with further management indicated from these results (the patient does not need to be inpatient for these results to be read). 4. We will advance the patient to a full liquid diet and advance as tolerated. 5. Pain control per primary team. We will continue to follow. Please call with any questions. Job ID: [id number]
[2018-10-11] MEDS: Metoclopramide HCl 10 MG/2 ML VIAL IVP PRN (11:48)
[2018-10-11] MEDS ORDERED: PROPOFOL 200 MG/20 ML VIAL ONE (13:17)
--- NOTE | 2018-10-11 18:30 | PDOC.PN ---
- Subjective Encounter Start Date: 10/11/18 Encounter Start Time: 16:28 Subjective: Patient states she has not been able to tolerate liquids. -: Tried drinking coffee which caused vomiting. -: She then tried broth but had increased pain and describes feeling as if it was stuck and not able to pass. No hematemesis. Reports one episode of loose stools since resuming diet. No melena or hematochezia. Remains afebrile. No CP or SOB. Denies any headaches or dizziness. - Objective Resuscitation Status - Order Detail: 10/09/18 02:02 Resuscitation Status Routine Co-Sign Provider: Resuscitation Status: FULL: Full Resuscitation Vital Signs & Weight: Vital Signs (12 hours) Temp Pulse Resp BP Pulse Ox 10/11/18 15:45 98.4 F 74 20 110/62 97 10/11/18 11:46 98.0 F 74 20 108/69 97 10/11/18 07:04 98.2 F 83 20 101/65 94 L Weight Admit Weight 185 lb 1.6 oz Weight 187 lb 3.2 oz I&O: 10/10/18 10/11/18 10/12/18 06:59 06:59 06:59 Intake Total 1804 3760 1620 Output Total 2050 1800 Balance -246 1960 1620 Result Diagrams: 10/10/18 13:03 10/11/18 04:27 Phys Exam - Physical Examination Constitutional: NAD HEENT: PERRLA Neck: full ROM Respiratory: clear to auscultation bilateral Cardiovascular: RRR Gastrointestinal: soft, no distention generalized discomfort, no guarding/rigidity Musculoskeletal: no edema Neurological: normal sensation, moves all 4 limbs Psychiatric: normal affect, A&O x 3 Skin: no rash Dx/Plan (1) Epigastric pain Code(s): R10.13 - EPIGASTRIC PAIN Status: Acute (2) Anxiety Code(s): F41.9 - ANXIETY DISORDER, UNSPECIFIED Status: Chronic (3) Obesity Code(s): E66.9 - OBESITY, UNSPECIFIED Status: Chronic - Plan cont current plan of care Patient s/p EGD: mild diffuse gastritis and mild duodenitis, ?achalasia -: Cleared by Dr. Marquez to advance diet which she has not tolerated. -: Given patients symptoms will obtain MBS to confirm achalasia. * .
[2018-10-12] MEDS: Sodium Chloride 0.9% 1,000 ML IV SCH ×3 (01:41→13:50)
[2018-10-12] MEDS: Nicotine 14 MG PATCH TD SCH (05:39)
[2018-10-12] MEDS: Lorazepam 2 MG/ML VIAL SLOW IVP PRN ×2 (05:39→13:43)
[2018-10-12] MEDS: Morphine 4 MG/ML VIAL SLOW IVP PRN (05:39)
[2018-10-12] MEDS: Ondansetron PF 4 MG/2 ML Vial IVP PRN ×2 (05:40→12:28)
[2018-10-12 05:59] LABS: Anion Gap 13 mmol/L (10-20); BUN (Urea Nitrogen) 5 mg/dL (7.0-18.7); Calc. Creatinine Clearance 135 mL/min (70-130); Calcium 8.6 mg/dL (7.8-10.44); Carbon Dioxide 24 mmol/L (22-29); Chloride 106 mmol/L (98-107); Estimated GFR-MDRD 86; Glucose 82 mg/dL (70-105); Potassium 3.9 mmol/L (3.5-5.1); Sodium 139 mmol/L (136-145)
[2018-10-12 06:11] LABS: Eosinophils 1 % (0-10); Hemoglobin 12.7 g/dL (12.0-16.0); Lymphocytes 66 % (21-51); MDiff Complete? YES; Mean Corpuscular HGB CONC 33.1 g/dL (32.0-36.0); Mean Corpuscular Hemoglobin 32.8 pg (27.0-31.0); Mean Corpuscular Volume 98.9 fL (78.0-98.0); Mean Platelet Volume 7.2 fL (7.4-10.4); Monocytes 4 % (0-10); Neutrophil 29 % (42-75); Platelet Count 240 thou/uL (130-400); Platelet Morphology Comment Appears Adequate; RBC Distribution Width 11.3 % (11.5-14.5); Red Blood Cell (RBC) Count 3.88 mill/uL (4.20-5.40); White Blood Cell (WBC) Count 8.2 thou/uL (4.8-10.8)
--- NOTE | 2018-10-12 08:25 | PRG ---
DATE OF SERVICE: 10/10/2018 REASON FOR CONSULTATION: Nausea, vomiting, abdominal pain, and hematemesis. SUBJECTIVE: Overnight, the patient states that she had no further episodes of nausea and vomiting as well as no further episodes of hematemesis. However, she does continue to have mid-epigastric abdominal pain that has continued into today. She was planned to have an EGD earlier this morning, but priority was given to CT of the abdomen and pelvis due to the steroid protocol for iodine contrast allergy. The patient tolerated the CT well with no adverse reactions in the post imaging. Currently, she states that she continues to have the mid-epigastric abdominal pain that is relatively unchanged in terms of location and/or severity. She did have some concerns that this mid-epigastric abdominal pain could be caused by adhesions versus endometriosis given her prior diagnosis of both. Currently, she denies any nausea, vomiting, fevers, chills, GI bleeding, diarrhea, or constipation. OBJECTIVE: VITAL SIGNS: Temperature 98.5, pulse 81, blood pressure 108/55, respiratory rate 20, and saturating 94% on room air. GENERAL: The patient was sitting at bedside, in no acute distress. Alert and oriented x4. CARDIOVASCULAR: Regular rate and rhythm. RESPIRATORY: Clear to auscultation bilaterally. ABDOMEN: Normoactive bowel sounds. Soft and nondistended. Tenderness to palpation in all abdominal quadrants, but especially in the mid-epigastric region. EXTREMITIES: No cyanosis, clubbing, or edema. LABORATORY DATA: CBC with a white blood cell count of 3.6, hemoglobin 13.7, hematocrit 41, and platelets 253. Chemistry with a sodium of 140, potassium 4.6, chloride 109, CO2 of 22, BUN 7, creatinine 0.8, and glucose 144. AST 213, ALT 325, alkaline phosphatase 106, and total bilirubin 0.4. IMAGING DATA: CT of the abdomen and pelvis obtained on October 10, 2018, showed normal liver, spleen, pancreas, and adrenal glands. No gastrohepatic, retrocrural, or periportal lymphadenopathy was seen. There was no evidence of bowel obstruction and there was no inflammation present within the pancreas nor were there any changes consistent with chronic pancreatitis. The uterus was surgically absent and there was no lytic or blastic lesions within the osseous structures. ASSESSMENT AND PLAN: The patient is a 38-year-old female with past medical history of irritable bowel syndrome, cervical cancer, pericarditis, fibromyalgia, anxiety, and pancreatitis, presenting with increased abdominal pain, nausea, vomiting, and hematemesis and now with elevated liver function tests. Mid-epigastric abdominal pain/nausea/vomiting. The patient is presenting with a history of intermittent mid-epigastric abdominal pain. This seems to have been present for the last year and a half. The pain is primarily located within the mid-epigastric region, but she does exhibit increased tenderness to palpation in all abdominal quadrants. With her prior history of pancreatitis, chronic pancreatitis is a possibility, although no changes of chronic pancreatitis were seen on the CT scan obtained today and her normal lipase level makes this less likely, although it does not necessarily rule out the possibility of chronic pancreatitis and pain associated with this diagnosis. At this time, differential could still include esophagitis, gastritis, peptic ulcer disease, Helicobacter pylori infection, gastroesophageal reflux disease and/or gastrointestinal neoplasm (much less likely). Recommendations: 1. We would continue PPI daily. 2. We would make the patient n.p.o. at midnight in preparation for EGD tomorrow for intraluminal evaluation. 3. Continue the patient on clear liquid diet. 4. Elevated LFTs. The patient is presenting with a chronic history of mid-epigastric abdominal pain that initially brought her to the hospital. On admission, she was noted to have normal liver function tests. However, over the last 24 to 48 hours, she has had a significant elevation in both AST and ALT consistent with hepatocellular process. At this time, the etiology of her transaminitis is unknown, but given the acute nature of it and normal LFTs on admission, medication-induced or drug-induced liver injury is more likely. With recent administration of prednisone as part of this steroid protocol for an iodine allergy related to imaging, it could potentially generate this type of picture. However, acute viral hepatitis could also potentially generate this type of picture, although I would expect these transaminases to be higher in that regard. Recommendations: 1. We would repeat the LFTs tomorrow to evaluate for possible spurious value. 2. Avoid any potential hepatotoxic medications. 3. Continue with IV fluid administration, especially in light of recent prednisone administration. 4. EGD is planned tomorrow morning. We will continue to follow. Please call with any questions. Job ID: [id number]
[2018-10-12] MEDS: Pantoprazole 40 MG VIAL IVP SCH (09:47)
[2018-10-12] MEDS: Sodium Chloride 0.9% (PF) 10 ML VIAL IV SCH (09:48)
[2018-10-12] MEDS ORDERED: Acetaminophen/Codeine Oral Solution PO PRN (11:17)
[2018-10-12 12:21] VITALS: TEMP 98
[2018-10-12 13:31] VITALS: BMI 34.2
--- NOTE | 2018-10-12 13:56 | RAD ---
ESOPHAGRAM: Date: 10/12/2018. HISTORY: Patient with a globus sensation in the upper esophagus, possible achalasia. FIELD REP CHEST X-RAY: Cardiac silhouette and pulmonary vasculature are within normal limits. The lungs are clear. Surgica l clips overlie the right upper quadrant . Residual contrast is seen within the colon from prior con trasted study. ESOPHAGRAM: The esophagus has a normal appearance without focal area of narrowing or mucosal irregularity. There is no evidence of a hiatal hernia and no gastroesophageal reflux was demonstrated during this exam. A 12.5 mm barium tablet was administered which traversed the esophagus and GE junction freely and wi thout holdup. IMPRESSION: No focal narrowing is seen within the esophagus. A 12.5 mm barium tablet traverses the esophagus and gastroesophageal junction freely and without holdup. FLUOROSCOPY: Total fluoroscopy time 0.9 minutes, total dose of 8.791 uGy*^cm2. POS: APOLINAR
[2018-10-12] MEDS ORDERED: Acetaminophen/Codeine 120-12MG/5 ML UDCUP PO PRN (14:00)
[2018-10-12 14:27] VITALS: BP 125/76
[2018-10-13 13:22] LABS: EliA Celiac New Method **** NEW METHOD ****; t-Transglutaminase (tTG) IgA 0.3 EliAU/mL (<7 Negative); t-Transglutaminase (tTG) IgG Less than 0.6 EliAU/mL (<7 Negative)
== END 2018-10-12 16:28 | disposition home or self-care (01) ==
LOC: ERS 22:23 → 2SW 10-09 02:07
PROVIDERS: ADMIT Family Medicine; ATTEND Internal Medicine
PROC: 0DB68ZX Excision of Stomach, Via Natural or Artificial Opening Endoscopic, Diagnostic (ICD-10-PCS; principal; 2018-10-11)
DX: K29.70 Gastritis, unspecified, without bleeding (principal); K31.89 Other diseases of stomach and duodenum; F41.9 Anxiety disorder, unspecified; E66.9 Obesity, unspecified; Z68.34 Body mass index [BMI] 34.0-34.9, adult; K58.9 Irritable bowel syndrome, unspecified; M79.7 Fibromyalgia; F17.210 Nicotine dependence, cigarettes, uncomplicated; Z85.41 Personal history of malignant neoplasm of cervix uteri; Z90.710 Acquired absence of both cervix and uterus; Z90.49 Acquired absence of other specified parts of digestive tract; Z88.1 Allergy status to other antibiotic agents; Z91.018 Allergy to other foods; Z91.013 Allergy to seafood; Z91.09 Other allergy status, other than to drugs and biological substances; Z79.818 Long term (current) use of other agents affecting estrogen receptors and estrogen levels; Z79.891 Long term (current) use of opiate analgesic; Z79.899 Other long term (current) drug therapy; Z98.890 Other specified postprocedural states
CPT/HCPCS: 36415; 74022; 74177; 74220; 80048; 80053; 80306; 81003; 81025; 83516; 83690; 85025; 86850; 86900; 86901; 88305; 88312; 93005; 96361; 96365; 96375; 96376; C9113; G0378; J2060; J2270; J2405; J2704; J2765

== ENCOUNTER 2022-01-24 14:26 | Emergency (ER) | payer OTHER, MEDICARE ==
[2022-01-24] MEDS ORDERED: Morphine 4 MG/ML VIAL ONE (15:22)
[2022-01-24] MEDS ORDERED: Ondansetron PF 4 MG/2 ML Vial ONE (15:22)
== END 2022-01-24 16:42 | disposition home or self-care (01) ==
LOC: ERS 14:26
DX: S40.012A Contusion of left shoulder, initial encounter (principal); S50.312A Abrasion of left elbow, initial encounter; F17.210 Nicotine dependence, cigarettes, uncomplicated; W17.89XA Other fall from one level to another, initial encounter; Y93.02 Activity, running; Y92.34 Swimming pool (public) as the place of occurrence of the external cause
CPT/HCPCS: 71045; 96374; 96375; J2270; J2405

== ENCOUNTER 2022-12-13 17:18 | Emergency (ER) | payer OTHER ==
[2022-12-13] MEDS ORDERED: Morphine 4 MG/ML VIAL ONE (17:45)
[2022-12-13] MEDS ORDERED: Ondansetron PF 4 MG/2 ML Vial ONE (17:46)
== END 2022-12-13 18:47 | disposition home or self-care (01) ==
LOC: ERS 17:18
DX: M25.552 Pain in left hip (principal); F17.210 Nicotine dependence, cigarettes, uncomplicated; W01.0XXA Fall on same level from slipping, tripping and stumbling without subsequent striking against object, initial encounter
CPT/HCPCS: 96374; 96375; J2270; J2405